=== PATIENT | female | born 1990 | race Caucasian/White ===

== ENCOUNTER 2024-01-11 04:19 | Day surgery (SDC) | payer OTHER ==
[2024-01-10 09:44] VITALS: BMI 28.6
[2024-01-11] MEDS ORDERED: cefOXitin SODIUM 2 GM VIAL (RESTRICTED TO ID) IVPB ONE (08:22)
[2024-01-11] MEDS ORDERED: BUPIVACAINE HCL/PF 0.25% (2.5MG/ML) 10 ML VIAL ONE (08:22)
[2024-01-11] MEDS ORDERED: HEPARIN NA (PORCINE) 5,000 UNITS/ML 1ML VIAL ONE (08:22)
[2024-01-11 12:05] LABS: ALBUMIN 4.3 g/dl (3.4-5.0); BLOOD UREA NITROGEN 10.9 mg/dL (7-18); CALCIUM 9.2 mg/dL (8.5-10.1)
[2024-01-11 12:09] LABS: CREATININE 0.7 mg/dL (0.55-1.3)
[2024-01-11 12:10] LABS: BILIRUBIN,TOTAL 0.5 mg/dL (0.2-1); TOT PROT 7.6 g/dl (6.4-8.2)
[2024-01-11] MEDS ORDERED: ONDANSETRON 4 MG/2 ML VIAL ONE (12:59)
[2024-01-11] MEDS ORDERED: DEXAMETHASONE SOD PHOSPHATE 4 MG/1 ML VIAL ONE (12:59)
[2024-01-11] MEDS ORDERED: ROCURONIUM BROMIDE 50 MG/5 ML SYRINGE ONE (12:59)
[2024-01-11] MEDS ORDERED: LIDOCAINE HCL/PF 2% SDV 5ML VIAL ONE (13:00)
[2024-01-11] MEDS ORDERED: KETOROLAC TROMETHAMINE 30 MG/1 ML VIAL ONE ×2 (13:00→13:41)
[2024-01-11] MEDS ORDERED: PROPOFOL 60 ML ONE (13:03)
[2024-01-11] MEDS ORDERED: PROPOFOL 20 ML ONE (13:05)
[2024-01-11] MEDS ORDERED: MIDAZOLAM HCL 2 MG/2 ML SINGLE DOSE VIAL ONE (13:06)
[2024-01-11] MEDS ORDERED: HYDROmorphone HCl 2 MG/ML VIAL ONE (13:15)
[2024-01-11] MEDS ORDERED: ACETAMINOPHEN INJECTION 100 ML IVPB ONE (13:19)
[2024-01-11] MEDS ORDERED: CEFOXITIN SODIUM 1 GM IVPB ONE (13:20)
[2024-01-11] MEDS: cefOXitin SODIUM 1 GM VIAL (RESTRICTED TO ID) IVPB ONE (13:25)
[2024-01-11] MEDS ORDERED: SUGAMMADEX SODIUM 200 MG/2 ML VIAL ONE (13:46)
[2024-01-11] MEDS: LACTATED RINGERS SOLUTION 1,000 ML IV SCH (14:10)
[2024-01-11] MEDS ORDERED: oxyCODONE HCL 5 MG TABLET PO PRN (14:56)
[2024-01-11] MEDS ORDERED: ONDANSETRON 4 MG/2 ML VIAL IVPUSH PRN (14:56)
[2024-01-11 15:58] VITALS: TEMP 97.2
[2024-01-11] MEDS: oxyCODONE HCL 5 MG TABLET PO PRN (16:03)
[2024-01-11] MEDS ORDERED: oxyCODONE HCL 10 MG SUSTAINED ACTING TABLET ONE (16:04)
[2024-01-11 16:19] VITALS: RESP 20
[2024-01-11 19:48] VITALS: BP 138/80; PULSE 80
== END 2024-01-11 17:45 | disposition home or self-care (01) ==
LOC: JASU-SURG 04:19
PROVIDERS: ATTEND Surgery
PROC: 0FT44ZZ Resection of Gallbladder, Percutaneous Endoscopic Approach (ICD-10-PCS; principal; 2024-01-11 12:45)
DX: K81.1 Chronic cholecystitis (principal)
CPT/HCPCS: 36415; 80053; 81025; 86850; 86900; 86901; 88304-TC; 94760; J0131; J1644